=== PATIENT | female | born 1950 | race Caucasian/White ===

== ENCOUNTER → 2020-04-29 | Outpatient (CLI) | payer MEDICARE ==
[~2020-04-29] MED LIST: ASPI-543 PO; FURO20TA3 PO; LEVEMIR SC; LOSA100T21 PO; MULTCAP45 PO; POTA1TAB61 PO
== END | disposition home or self-care (01) ==
LOC: Rad HDHVI 13:46
PROVIDERS: ATTEND Internal Medicine Cardiovascular Disease
DX: R00.1 Bradycardia, unspecified (principal); E11.9 Type 2 diabetes mellitus without complications; R07.89 Other chest pain
CPT/HCPCS: 93306

== ENCOUNTER 2025-02-03 07:51 | Day surgery (SDC) | payer OTHER ==
[2025-02-03] VITALS (9 sets, daily range): BP systolic 124–146; BP diastolic 58–80; PULSE 63–70; RESP 12–14; TEMP 97.5; O2SAT 90–100
[~2025-02-03] VITALS: Ht 157.5 cm; Wt 98.9 kg
[~2025-02-03 07:51] MED LIST changes: +ACET-1080 PO; +ALLO100T PO; +APIX2.5T PO; -ASPI-543 PO; -FURO20TA3 PO; +FURO40TA4 PO; +GLIP10TA9 PO; +KRIL1CAP8 PO; -LEVEMIR SC; -LOSA100T21 PO; +MONT10TA23 PO; -MULTCAP45 PO; +POM PO; -POTA1TAB61 PO; +SPIR50TA5 PO
[2025-02-03] MEDS ORDERED: ANGIOMAX 250 MG VIAL IV ONE (08:15)
[2025-02-03] MEDS ORDERED: HEPARIN SODIUM (PORCINE) 5000 UNITS/ML 1ML VIAL ONE (08:15)
[2025-02-03] MEDS ORDERED: fentaNYL CITRATE 100 MCG/2 ML VL ONE (08:16)
[2025-02-03] MEDS ORDERED: VERAPAMIL 2.5MG/ML INJ 2ML VIAL IV ONE (08:16)
[2025-02-03] MEDS ORDERED: MIDAZOLAM HCL 2MG/2ML 2ml VIAL (1mg/ml) ONE (08:17)
[2025-02-03] MEDS ORDERED: SODIUM CHL 0.9% 0 ML ONE (08:17)
[2025-02-03] MEDS ORDERED: LIDOCAINE 2%HCL (LOCAL ANESTH.) INJ 20ML MDV ONE (08:17)
[2025-02-03] MEDS ORDERED: HEPARIN IN NS 1000Units/500mL 1,500 ML ONE (08:19)
[2025-02-03] MEDS ORDERED: IODIXANOL 320MG/ML 100ML BTL IV ONE (08:19)
[2025-02-03] MEDS ORDERED: HYDROmorphone HCL 2 MG/ML VL/or syr ONE (09:03)
[2025-02-03] MEDS ORDERED: ONDANSETRON HCL 4 MG/2 ML VIAL ONE (09:50)
--- NOTE | 2025-02-03 10:52 | DVHOP2 ---
Operative Report - 2 Report Details Date: 02/03/25 Preop Diagnosis: Pulmonary hypertension. Postop Diagnosis: Significant pulmonary hypertension. Surgeon: Charisse Murray MD Anesthesiologist: Conscious sedation. Anesthesia: Mac, Local (Versed and fentanyl were given in order by me. I personally monitored the patient throughout the entirety of the procedure.) Consent: The patient was informed of the risks and benefits of the procedure. These include but are not limited to complications of anesthesia, postoperative infection, incomplete relief of symptoms, recurrence of symptoms, damage to blood vessels, nerves and tendons, deep venous thrombosis, pulmonary embolism and possible need for repeat surgery in the future. Estimated Blood Loss: 5 cc Findings: Pulmonary hypertension. Indications for Surgery: Pulmonary hypertension. Name of Procedure Performed Right and left heart catheterization Procedure Details Procedure Details: Prior local anesthesia with 2% lidocaine to the right groin and full informed consent obtained the patient was prepped and draped in usual fashion followed by placement of a six [place] sheath into the femoral artery and a seven [place] sheath into the femoral vein through which a Concrete-Emani catheter was placed into the femoral vein into the right atrium right ventricle pulmonary capillary wedge pressure positions or pressures were obtained and recorded. Cardiac output was determined by the thermodilution technique in triplicate. O2 saturations were not obtained. A six [place] sheath was advanced into the femoral artery through which six [place] Crystal catheters were used to faintly both right and left coronary ostia and a six [place] pigtail catheter was used for ventriculography. Hemodynamics: The right atrial pressure was 14. The right ventricular pressure was 71/12. Pulmonary artery pressure was 72/44. Capillary wedge pressure was approximately 15. Cardiac output by the thermodilution technique was 3.7 liters/minute. Left ventricular pressure was 162/13. Aortic blood pressure was 150/93. There was no gradient across the aortic valve on pullback. SVR was 1816 dynes. Pulmonary vascular resistance was 650 dynes. Coronary anatomy: The RCA is a large vessel it is normal in its proximal mid and distal segments. PDA and posterolateral branches were normal. The left main is large and normal. The LAD is large with two diagonals free of significant disease. Left coronary system is normal. The circumflex is a large vessel with two obtuse marginals free of significant disease. Ventriculography in the CAMEJO projection was performed. There is an EF of about 50%. Impression: Mildly elevated left ventricular end-diastolic pressure was significant pulmonary hypertension. Mildly decreased EF. Significant pulmonary hypertension noted. Recommendations: Patient will undergo a 6 minute walk in treatment for pulmonary hypertension protocols1 Condition Good Disposition Home Date of Service: Feb 03, 2025 Billing Provider: CHARISSE MURRAY Sr., MD Cardiology Common Codes: 56461-QJPCBUC INP/OBS CARE (High) Cardiology Procedure Codes: 08729-GRUF ADD CORONARY BRANCH (Right and left heart catheterization.), 24727-HDPC HEART CATH W/INTRA INJ, 41579-E/R & L HEART CATH FOR LVG, 60017-WZT & PLCMT OF FLOW DIR CATH CHARISSE MURRAY Sr., MD Feb 03, 2025 10:52
[2025-02-03] MEDS ORDERED: KETOROLAC TROMETH 30 MG/ML 1ML VIAL ONE (13:59)
[2025-02-03] MEDS ORDERED: KETOROLAC TROMETH 30 MG/ML 1ML VIAL IV ONE (14:30)
[2025-02-03] MEDS: KETOROLAC TROMETH 60MG/2ML VIAL IM ONE (15:05)
--- NOTE | 2025-02-03 16:04 | DVH ---
US RT LOWER DVT US 02/03/2025 02:42 PM Clinical History: RT inner thigh pain Comparison: None Technique: Duplex Doppler evaluation of the deep venous system of the right lower extremity from the common femo ral vein to the popliteal vein including color Doppler and spectral/pulsed waveform analysis was perf ormed. Findings: The common femoral, greater saphenous junction and proximal femoral vein could not be evaluated due t o surgery and overlying bandage. Distal femoral and popliteal veins are patent incompressible. The ti bioperoneal trunk and posterior tibial vein are patent. Impression: 1. The proximal thigh could not be evaluated due to overlying bandage. Remainder of the visualized ve ins are patent.
== END 2025-02-03 15:50 | disposition home or self-care (01) ==
LOC: CATH 07:51
PROVIDERS: ATTEND Internal Medicine
DX: I27.20 Pulmonary hypertension, unspecified (principal); M33.13 Other dermatomyositis without myopathy; Z88.1 Allergy status to other antibiotic agents; Z88.0 Allergy status to penicillin; Z88.8 Allergy status to other drugs, medicaments and biological substances; Z95.0 Presence of cardiac pacemaker; Z98.890 Other specified postprocedural states
CPT/HCPCS: 82962; 93460; 93971; C1769; C1894; J1171; J1644; J1885; J2250; J2405; J3010; J7030; Q9967; 99152